=== PATIENT | male | born 1990 | race Caucasian/White ===

== ENCOUNTER 2019-04-25 22:51 | Emergency (ER) | payer MEDICAID ==
[~2019-04-25] VITALS: Ht 177.8 cm; Wt 104.0 kg
[2019-04-25] MEDS ORDERED: ONDANSETRON 4MG ODT PO STA (23:12)
[2019-04-25 23:15] VITALS: BP 120/55
== END 2019-04-26 00:44 | disposition home or self-care (01) ==
LOC: ER 22:51
DX: R11.10 Vomiting, unspecified (principal); F12.10 Cannabis abuse, uncomplicated
CPT/HCPCS: 36415; 80320; 99283; Q0162; Z7610; G0480

== ENCOUNTER 2023-04-22 00:57 | Emergency (ER) | payer MEDICAID ==
[~2023-04-22] VITALS: Ht 177.8 cm; Wt 125.0 kg
[2023-04-22 01:02] VITALS: BP 125/83; PULSE 73; RESP 20; TEMP 98.9; O2SAT 96
== END 2023-04-22 05:03 | disposition left against medical advice (07) ==
LOC: ER 01:23
DX: Z53.21 Procedure and treatment not carried out due to patient leaving prior to being seen by health care provider (principal)
CPT/HCPCS: 99281